=== PATIENT | female | born 1980 | race Caucasian/White ===

== ENCOUNTER 2021-11-04 11:48 | Outpatient (REF) | payer OTHER, SELFPAY ==
[2021-11-04 14:24] LABS: Cholesterol 141 mg/dL; Glucose Fasting 88 mg/dL (60-99); HDL Cholesterol 38 mg/dL; LDL Cholesterol Calculated 91 mg/dl; Triglycerides 64 mg/dL
[2021-11-04 14:46] LABS: Vitamin D 25-OH Total 14.1 ng/mL (>30)
== END 2021-11-04 11:49 | disposition home or self-care (01) ==
LOC: HO.HMGCLDS 11:48
PROVIDERS: PCP Internal Medicine; Visit Provider Internal Medicine
DX: Z00.00 Encounter for general adult medical examination without abnormal findings (principal)
CPT/HCPCS: 36415; 80061; 82306; 82947

== ENCOUNTER 2023-05-20 12:23 | Outpatient (AMB) | payer OTHER, SELFPAY ==
--- NOTE | 2023-05-20 13:01 | MHC.PC.OV ---
Vital Signs 05/20/23 13:05 Height 5 ft 1 in Weight 143 lb BMI 27.0 BP 104/64 Blood Pressure Location Rt brachial Position Sitting Pulse 66 Pulse Source Pulse Oximeter Pulse Oximetry (%) 99 Oxygen Delivery Method Room Air Intake Visit Reasons: PHY Intake Note: Pt is here today for her Physical Exam Is last menstrual period known: Yes Last menstrual period: 04/26/23 Allergies No Known Allergies Allergy (Verified 05/20/23 13:37) Medication List - Last Reconciled 05/20/23 by Winter Ji MD ibuprofen 0 mg PO Tobacco use date assessed: 05/20/23 Dental Screening Dental Screen Date: 05/20/23 Did you have a dental visit in the last 12 months?: Yes Did you have a dental problem in the last 6 months where you did not have access to dental care?: Yes Was dental information given to patient?: Patient has dentist HPI HPI Comments History of Present Illness Details 42-year-old lady here today for physical exam, currently sees an OBGYN, , at [facility] for routine Pap and pelvic exam last done 03/03/2023 with normal findings. Patient also has been referred for a screening mammogram, but has not had it scheduled yet. She currently goes to see Dr. Briggs at [facility] for left shoulder pain, with a partial tear on the labrum as noted on MRI, scheduled for arthroscopic surgery in July 2023. Complains of pain on flexion/extension of her left thumb present now for at least a week, tripped and tried to break the fall with her left hand [facility] Medical History Left shoulder pain No pertinent past medical history Vitamin D deficiency Surgical History Stickney teeth extracted Family History Father Essential hypertension Mother Essential hypertension Paternal Grandmother Breast cancer Mental health disorder Maternal Grandmother Cancer of kidney Social History Housing: House Alcohol intake: current Patient Tobacco Use Status: Former Tobacco user Years Smoked: 20 yrs e-Cigarette/Vaping Use: Never Used service: No Current occupational status: employed Cognitive needs: No Hearing needs: No Vision needs: Yes Female Reproductive History Menstrual Age of Menarche: 9 Date of last menstrual period: 04/26/23 Date of last pap smear: 03/05/23 Other: sees [facility] at [facility] , scheduled for a mammogram Questionnaire PHQ-9 Over the last 2 weeks, how often have you been bothered by any of the following problems? 1. Little interest or pleasure in doing things: not at all 2. Feeling down, depressed, or hopeless: not at all 3. Trouble falling or staying asleep, or sleeping too much: not at all 4. Feeling tired or having little energy: not at all 5. Poor appetite or overeating: not at all 6. Feeling bad about yourself - or that you are a failure or have let yourself or your family down: not at all 7. Trouble concentrating on things, such as reading the newspaper or watching television: not at all 8. Moving or speaking so slowly that other people could have noticed. Or the opposite - being so fidgety or restless that you have been moving around a lot more than usual: not at all 9. Thoughts that you would be better off or of hurting yourself in some way: not at all Total score: 0 Depression Screening Interpretation: Negative 32168 - PHQ-9 Billing: Yes Source: Developed by Drs. Young Ramon, Marichuy Maki, Wood Johnson and colleagues, with an educational stefani from [employer]. Thrive Questionnaire Date Thrive assessed: 05/20/23 I am a: Patient What is your living situation today?: I have a steady place to live Within the past 12 months, did the food you bought not last and you didn't have the money to get more?: Never true Within the past 12 months, did you worry whether your food would run out before you got money to buy more?: Never true Do you have trouble paying for medicines?: No Do you have trouble getting transportation to medical appointments?: No Do you have trouble paying your heating and electricity bill?: No Do you have trouble taking care of your child, family member or friend?: No Do you have trouble with day-to-day activities such as bathing, preparing meals, shopping, managing finances, etc.?: No Are you currently unemployed and looking for a job?: No Are you interested in more education?: No AUDIT C Alcohol Use Questionnaire (AUDIT-C) 1. How often do you have a drink containing alcohol?: Never Total Score: 0 Score Reviewed/Action Taken: Yes ALICIA-7 AMB Questionnaire ALICIA-7 Date ALICIA - 7 assessed: 05/20/23 Feeling nervous, anxious, or on edge: 0 = Not at all Not being able to stop or control worryin = Not at all Worrying too much about different things: 0 = Not at all Trouble relaxin = Not at all Being so restless that it is hard to sit still: 0 = Not at all Becoming easily annoyed or irritable: 0 = Not at all Feeling afraid as if something awful might happen: 0 = Not at all Total ALICIA-7 score (0-4 normal; 5-9 mild; 10-14 moderate; 15-21 severe): 0 Source: Developed by Drs. Young Ramon, Marichuy Maki, Wood Johnson and colleagues, with an educational stefani from [employer]. ALICIA-7 Assessment Billing ALICIA-7 Assessment Tool: ALICIA-7 Assessment 07214 Review of Systems Const Denies body aches, Denies difficulty sleeping, Denies fatigue, Denies fever(s), Denies headache(s) and Denies weakness Eyes Denies change in vision and Denies eye discharge ENT Reports Normal hearing present, Denies dysphagia, Denies dizziness, Denies headache(s), Denies nasal congestion, Denies nasal discharge and Denies sore throat Card Denies chest pain, Denies lightheadedness, Denies palpitations, Denies dyspnea and Denies dyspnea on exertion Resp Denies chest congestion, Denies cough, Denies dyspnea, Denies dyspnea on exertion and Denies wheezing GI Denies abdominal pain, Denies melena, Denies bloating, Denies hematochezia, Denies change in bowel habits, Denies dysphagia and Denies heartburn Reports abnormal menses (Sometimes gets 2 periods in a month), Denies hematuria, Denies change in libido, Denies urinary frequency, Denies difficulty voiding, Denies genital lesions, Denies menorrhagia, Denies hot flashes, Denies nipple discharge, Denies dysmenorrhea, Denies dysuria, Denies urinary incontinence and Denies vaginal discharge Musc Reports no additional complaints Skin/Breast Denies breast pain, Denies breast mass, Denies lesions, Denies nipple discharge and Denies rash Neuro Reports Normal hearing present, Denies dizziness, Denies headache(s), Denies Sensory deficit (Neuro) and Denies weakness Psych Reports as per HPI and Denies change in libido Endo Denies change in libido, Denies fatigue, Denies polydipsia, Denies polyuria and Denies palpitations Giovanni/Lymph Denies easy bleeding and Denies easy bruising Aller/Immun Denies seasonal rhinorrhea and Denies wheezing Physical exam (Primary Care) Vital Signs: Last Vital Signs Pulse 66 05/20/23 13:05 BP 104/64 05/20/23 13:05 Pulse Ox 99 05/20/23 13:05 Oxygen Delivery Method Room Air 05/20/23 13:05 BMI result Body Mass Index 27.0 Tobacco/Smoking Status: Tobacco use Status Tobacco use date assessed 05/20/23 05/20/23 13:02 Patient Tobacco Use Status Former Tobacco user 05/20/23 13:02 e-Cigarette/Vaping Use Never Used 05/20/23 13:02 Depression Screening Interpretation: Negative Thrive Assessment: Date of Thrive Assessment Date Thrive assessed 11/04/21 05/20/23 13:02 Const General: cooperative, healthy appearing, no acute distress and alert Nutritional Appearance: average body habitus Orientation/consciousness: patient oriented x3 HENMT Head: Yes normocephalic and Yes atraumatic Ears: hearing grossly normal bilaterally, external ears normal, TM's normal bilaterally and EAC's normal General nose exam: Normal external nose present and No nasal discharge present Face and sinus: Yes face symmetric Mouth: Normal oral and palatal mucosa present, lip normal, tongue normal, oropharynx normal and moist mucous membranes Eyes Conjunctivae: conjunctivae normal Sclerae: sclerae normal Pupils: Equal, round and reactive pupils present EOM: EOMs intact bilaterally Neck Neck: Yes full ROM and Yes no lymphadenopathy Thyroid: Thyroid normal Carotids: normal carotid upstroke Chest Chest palpation & inspection: normal inspection of the chest Resp Effort & Inspection: normal respiratory effort and able to speak in complete sentences Auscultation: clear to auscultation bilaterally Cardio Rate: regular rate Rhythm: regular rhythm Heart sounds: S1 normal heart sound present and S2 normal heart sound present GI Inspection: Yes normal to inspection Palpation (GI): Soft to palpation Auscultation: normal bowel sounds Back/Spine/Pelvis Back: No back tenderness Skin General skin exam: no rashes or lesions noted Neuro General: patient oriented x3, gait normal, moves all extremities, no focal motor deficits and CN's II-XI intact bilaterally Cranial nerves: Yes Equal, round and reactive pupils present and Yes Normal hearing present Cognition (Neuro): normal cognition Gait exam (Neuro): Normal gait present Motor exam (neuro): 5/5 motor strength present throughout Sensory Exam: No Sensory deficit (Neuro) Extrem Other: Unable to abduct more than 90 degrees left arm and unable to extended forward more than 90 degrees due to pain and stiffness, slight tenderness on palpation of left MCP joint, with pain elicited on hyper extension of thumb General: Yes normal to inspection, Yes no pedal edema and Yes normal gait Psych Appearance: grossly normal and well kempt Mental Status: mental status grossly normal Speech and movement: Normal speech and movement present Affect: normal affect Attitude: cooperative Thought process: Normal thought process present Thought content: Normal thought content present Assessment and Plan Assessment & Plan (1) Annual visit for general adult medical examination with abnormal findings: Code(s): Z00.01 - Encounter for general adult medical examination with abnormal findings Plan: Will check appropriate labs. Gets regular dental visit every 6 months and regular eye exams, at least every 2 years. Take adequate calcium in diet and vitamin-D 3 at 2000 IU per cap once a day, in addition to weight-bearing exercises to help maintain good muscle tone and weight control. Goes to [facility] for her routine Pap and pelvic exam, up-to-date done earlier this year. Instructed to do self-breast exam, and recommended to get yearly mammogram, starting at age 40. Reminded to get her COVID booster, it with her Tdap and gets yearly flu shots. (2) Left shoulder pain: Comment: Sees Dr. Briggs at [facility], scheduled for arthroscopic surgery July 2023 Code(s): M25.512 - Pain in left shoulder Plan: Currently being followed by [facility], sees Dr. Conti who scheduled her for arthroscopic surgery in July 2023 (3) Sprain of hand, thumb, left: Code(s): S63.602A - Unspecified sprain of left thumb, initial encounter Plan: Try massaging diclofenac gel or Aleve cream to affected area to 2 3 times a day as needed. Orders: Orders Glucose Fasting Today E55.9 - Vitamin D deficiency, unspecified, M25.512 - Pain in left shoulder, Z00.01 - Encounter for general adult medical examination with abnormal findings Lipid Panel Today E55.9 - Vitamin D deficiency, unspecified, M25.512 - Pain in left shoulder, Z00.01 - Encounter for general adult medical examination with abnormal findings Vitamin D 25-OH Total Today E55.9 - Vitamin D deficiency, unspecified, M25.512 - Pain in left shoulder, Z00.01 - Encounter for general adult medical examination with abnormal findings Coding Level of Care Code Est Pt Prev Care 40-64y(43630) Diagnoses Annual visit for general adult medical examination with abnormal findings Z00.01 Left shoulder pain M25.512 Sprain of hand, thumb, left S63.602A Additional Codes ALICIA-7 Assessment Billing - ALICIA-7 Assessment Tool: ALICIA-7 Assessment 90155 ([id number])
[2023-05-20 13:05] VITALS: BP 104/64; PULSE 66; O2SAT 99; BMI 27.0
== END 2023-05-20 13:52 | disposition home or self-care (01) ==
PROVIDERS: PCP Internal Medicine; Visit Provider Internal Medicine
DX: Z00.01 Encounter for general adult medical examination with abnormal findings (principal); M25.512 Pain in left shoulder; S63.602A Unspecified sprain of left thumb, initial encounter
CPT/HCPCS: 99396

== ENCOUNTER 2024-05-24 08:03 | Outpatient (AMB) | payer OTHER, SELFPAY ==
--- NOTE | 2024-05-24 08:04 | MHC.PC.OV ---
Vital Signs 05/24/24 08:08 Height 5 ft 1 in Weight 150 lb BMI 28.3 BP 110/62 Blood Pressure Location Rt brachial Position Sitting Pulse 67 Pulse Source Pulse Oximeter Pulse Oximetry (%) 99 Oxygen Delivery Method Room Air Intake Visit Reasons: PE Intake Note: Pt is here today for her PE: Last papsmear 03/09/24, Never had a mammogram Allergies No Known Allergies Allergy (Verified 05/24/24 08:30) Medication List - Last Reconciled 05/24/24 by Winter Ji MD ibuprofen 0 mg PO Tobacco use date assessed: 05/24/24 Dental Screening Dental Screen Date: 05/24/24 Did you have a dental visit in the last 12 months?: Yes Did you have a dental problem in the last 6 months where you did not have access to dental care?: No Was dental information given to patient?: Patient has dentist HPI PE HPI Details 43-year-old Lady here today for physical exam. She is up-to-date with her cervical cancer screening, goes [facility], with last Pap smear done 03/09/2024. Overdue for her mammogram, never had one. Currently looking for a new OBGYN as her current provider is retiring. She has been feeling well except for loss of libido, which patient states has been present now for several years and seems to be progressing. Denies any pelvic pain, no dyspareunia denies any depression symptoms or anxiety. [facility] Medical History (Updated 05/24/24 @ 08:57 by Winter Ji MD) Vitamin D deficiency Left shoulder pain Surgical History (Updated 05/24/24 @ 08:52 by Winter Ji MD) History of arthroscopy of left shoulder [place] teeth extracted Family History (Updated 05/24/24 @ 08:53 by Winter Ji MD) Father Essential hypertension Mother Essential hypertension Paternal Grandmother Breast cancer Mental health disorder Maternal Grandmother Cancer of kidney Maternal Aunt Thyroid disorder Social History Housing: House Alcohol intake: current Patient Tobacco Use Status: Former Tobacco user Years Smoked: 20 yrs e-Cigarette/Vaping Use: Never Used service: No Current occupational status: employed Cognitive needs: No Hearing needs: No Vision needs: Yes Female Reproductive History Menstrual Age of Menarche: 9 Duration of menses: 3-5 days Date of last menstrual period: 05/09/24 control method: permanent sterilization Permanent Sterilization: Vasectomy Questionnaire PHQ-9 Over the last 2 weeks, how often have you been bothered by any of the following problems? 1. Little interest or pleasure in doing things: not at all 2. Feeling down, depressed, or hopeless: not at all 3. Trouble falling or staying asleep, or sleeping too much: not at all 4. Feeling tired or having little energy: several days 5. Poor appetite or overeating: not at all 6. Feeling bad about yourself - or that you are a failure or have let yourself or your family down: not at all 7. Trouble concentrating on things, such as reading the newspaper or watching television: not at all 8. Moving or speaking so slowly that other people could have noticed. Or the opposite - being so fidgety or restless that you have been moving around a lot more than usual: not at all 9. Thoughts that you would be better off or of hurting yourself in some way: not at all Total score: 1 Depression Screening Interpretation: Negative Depression Screening Done: Yes 51712 - PHQ-9 Billing: Yes Source: Developed by Drs. Young Ramon, Marichuy Maki, Wood Johnson and colleagues, with an educational stefani from [employer]. Thrive Questionnaire Date Thrive assessed: 05/24/24 I am a: Patient What is your living situation today?: I have a steady place to live Within the past 12 months, did the food you bought not last and you didn't have the money to get more?: Never true Within the past 12 months, did you worry whether your food would run out before you got money to buy more?: Never true Do you have trouble paying for medicines?: No Do you have trouble getting transportation to medical appointments?: No Do you have trouble paying your heating and electricity bill?: No Do you have trouble taking care of your child, family member or friend?: No Do you have trouble with day-to-day activities such as bathing, preparing meals, shopping, managing finances, etc.?: No Are you currently unemployed and looking for a job?: No Are you interested in more education?: No Please select the resources that you would like help with: Housing/Nursing Home Currently or been in a relationship where the following occur: No concerns reported THRIVE Score: 0 AUDIT C Alcohol Use Questionnaire (AUDIT-C) 1. How often do you have a drink containing alcohol?: 2-3 times a week 2. How many drinks containing alcohol do you have on a typical day when you are drinking?: 3 or 4 3. How often do you have six or more drinks on one occasion?: Monthly Total Score: 6 ALICIA-7 AMB Questionnaire ALICIA-7 Date ALICIA - 7 assessed: 05/24/24 Feeling nervous, anxious, or on edge: 0 = Not at all Not being able to stop or control worryin = Not at all Worrying too much about different things: 0 = Not at all Trouble relaxin = Not at all Being so restless that it is hard to sit still: 0 = Not at all Becoming easily annoyed or irritable: 1 = Several days Feeling afraid as if something awful might happen: 0 = Not at all Total ALICIA-7 score (0-4 normal; 5-9 mild; 10-14 moderate; 15-21 severe): 1 Source: Developed by Drs. Young Ramon, Marichuy Maki, Wood Johnson and colleagues, with an educational stefani from [employer]. ALICIA-7 Assessment Billing ALICIA-7 Assessment Tool: ALICIA-7 Assessment 34248 Review of Systems Const Denies body aches, Denies difficulty sleeping, Denies fatigue, Denies fever(s), Denies headache(s) and Denies weakness Eyes Denies change in vision ENT Reports Normal hearing present, Denies dysphagia, Denies dizziness, Denies headache(s), Denies nasal congestion, Denies nasal discharge and Denies sore throat Card Denies chest pain, Denies lightheadedness, Denies palpitations, Denies dyspnea and Denies dyspnea on exertion Resp Denies chest congestion, Denies cough, Denies dyspnea, Denies dyspnea on exertion and Denies wheezing GI Denies abdominal pain, Denies melena, Denies bloating, Denies hematochezia, Denies change in bowel habits, Denies dysphagia and Denies heartburn Reports abnormal menses (Sometimes gets 2 periods in a month), Denies hematuria, Denies urinary frequency, Denies genital lesions, Denies menorrhagia, Denies hot flashes, Denies nipple discharge, Denies dysmenorrhea, Denies dysuria, Denies urinary incontinence and Denies vaginal discharge Musc Reports no additional complaints Skin/Breast Denies breast pain, Denies breast mass, Denies lesions, Denies nipple discharge and Denies rash Neuro Reports Normal hearing present, Denies dizziness, Denies headache(s), Denies Sensory deficit (Neuro) and Denies weakness Psych Reports as per HPI Endo Denies fatigue, Denies polydipsia, Denies polyuria and Denies palpitations Giovanni/Lymph Denies easy bleeding and Denies easy bruising Aller/Immun Denies seasonal rhinorrhea and Denies wheezing Physical exam (Primary Care) Vital Signs: Last Vital Signs Pulse 67 05/24/24 08:08 BP 110/62 05/24/24 08:08 Pulse Ox 99 05/24/24 08:08 Oxygen Delivery Method Room Air 05/24/24 08:08 BMI result Body Mass Index 28.3 Tobacco/Smoking Status: Tobacco use Status Tobacco use date assessed 05/24/24 05/24/24 08:05 Patient Tobacco Use Status Former Tobacco user 05/24/24 08:05 e-Cigarette/Vaping Use Never Used 05/24/24 08:05 PHQ-9: PHQ-9 Score PHQ-9: Total score 1 05/24/24 08:05 Depression Screening Interpretation: Negative Thrive Assessment: Date of Thrive Assessment Date Thrive assessed 05/24/24 05/24/24 08:10 Currently or been in a relationship where the following occur: No concerns reported Const General: cooperative, healthy appearing, no acute distress and alert Nutritional Appearance: average body habitus Orientation/consciousness: patient oriented x3 HENMT Head: Yes normocephalic and Yes atraumatic Ears: hearing grossly normal bilaterally, external ears normal, TM's normal bilaterally and EAC's normal General nose exam: Normal external nose present and No nasal discharge present Face and sinus: Yes face symmetric Mouth: Normal oral and palatal mucosa present, lip normal, tongue normal, oropharynx normal and moist mucous membranes Eyes Conjunctivae: conjunctivae normal Sclerae: sclerae normal Pupils: Equal, round and reactive pupils present EOM: EOMs intact bilaterally Neck Neck: Yes full ROM and Yes no lymphadenopathy Thyroid: Thyroid normal Carotids: normal carotid upstroke Chest Chest palpation & inspection: normal inspection of the chest Resp Effort & Inspection: normal respiratory effort and able to speak in complete sentences Auscultation: clear to auscultation bilaterally Cardio Rate: regular rate Rhythm: regular rhythm Heart sounds: S1 normal heart sound present and S2 normal heart sound present GI Inspection: Yes normal to inspection Palpation (GI): Soft to palpation Auscultation: normal bowel sounds Back/Spine/Pelvis Back: No back tenderness Skin General skin exam: no rashes or lesions noted Neuro General: patient oriented x3, gait normal, moves all extremities, no focal motor deficits and CN's II-XI intact bilaterally Cranial nerves: Yes Equal, round and reactive pupils present and Yes Normal hearing present Cognition (Neuro): normal cognition Gait exam (Neuro): Normal gait present Motor exam (neuro): 5/5 motor strength present throughout Sensory Exam: No Sensory deficit (Neuro) Extrem General: Yes normal to inspection, Yes full ROM, Yes no pedal edema and Yes normal gait Psych Appearance: grossly normal and well kempt Mental Status: mental status grossly normal Speech and movement: Normal speech and movement present Affect: normal affect Attitude: cooperative Thought process: Normal thought process present Thought content: Normal thought content present Assessment and Plan Assessment & Plan (1) Annual visit for general adult medical examination with abnormal findings: Code(s): Z00.01 - Encounter for general adult medical examination with abnormal findings Plan: Will check appropriate labs. Continue regular dental visit every 6 months and regular eye exams, at least every 2 years. Take adequate calcium in diet and vitamin-D 3 at 2000 IU per cap once a day, in addition to weight-bearing exercises to help maintain good muscle tone and weight control. Instructed to do self-breast exam, and recommended to get yearly mammogram, scheduled for the day, patient wants it done at [facility]. Up-to-date with her cervical cancer screening, done 03/09/2024. Has had COVID vaccinations in the past but does not want to get the booster, reminded to get her flu shot yearly and up-to-date with her Tdap. (2) Vitamin D deficiency: Code(s): E55.9 - Vitamin D deficiency, unspecified Plan: Ordered repeat vitamin-D level, currently not taking any vitamin-D supplement, states that she is always outdoors (3) Encounter for counseling regarding advance directives: Code(s): Z71.89 - Other specified counseling Plan: Initiated the conversation about Advanced Directives. Advanced Directives help patients prepare for current and future decisions about their medical treatment and place of care. Discussed with patient that it is a process where a patients current condition and prognosis are reviewed, their wishes for information regarding their illness are elicited, and likely medical dilemmas are presented and options discussed. Healthcare proxy done today. The form can be amended as needed, reviewed yearly and make changes as needed (4) Reduced libido: Code(s): R68.82 - Decreased libido Plan: Will check fasting glucose, lipids, TSH with free T4 level, denies any anxiety or depressive symptoms Orders: Orders Lipid Panel Today E55.9 - Vitamin D deficiency, unspecified, R68.82 - Decreased libido, Z13.1 - Encounter for screening for diabetes mellitus, Z13.220 - Encounter for screening for lipoid disorders, Z71.89 - Other specified counseling Glucose Fasting Today E55.9 - Vitamin D deficiency, unspecified, R68.82 - Decreased libido, Z13.1 - Encounter for screening for diabetes mellitus, Z13.220 - Encounter for screening for lipoid disorders, Z71.89 - Other specified counseling TSH reflex Free T4 Today Z83.49 - Family history of other endocrine, nutritional and metabolic diseases Vitamin D 25-OH Total Today E55.9 - Vitamin D deficiency, unspecified, R68.82 - Decreased libido, Z13.1 - Encounter for screening for diabetes mellitus, Z13.220 - Encounter for screening for lipoid disorders, Z71.89 - Other specified counseling MM tomosynthesis screening BI Today Z12.31 - Encounter for screening mammogram for malignant neoplasm of breast Coding Level of Care Code Est Pt Prev Care 40-64y(31281) Diagnoses Annual visit for general adult medical examination with abnormal findings Z00.01 Vitamin D deficiency E55.9 Encounter for counseling regarding advance directives Z71.89 Reduced libido R68.82 Additional Codes ALICIA-7 Assessment Billing - ALICIA-7 Assessment Tool: ALICIA-7 Assessment 43754 ([id number])
[2024-05-24 08:08] VITALS: BP 110/62; PULSE 67; O2SAT 99; BMI 28.3
== END 2024-05-24 10:23 | disposition home or self-care (01) ==
PROVIDERS: PCP Internal Medicine; Visit Provider Internal Medicine
DX: Z00.00 Encounter for general adult medical examination without abnormal findings (principal); E55.9 Vitamin D deficiency, unspecified; Z71.89 Other specified counseling; R68.82 Decreased libido
CPT/HCPCS: 99396

== ENCOUNTER 2024-05-24 08:45 | Outpatient (REF) | payer OTHER, SELFPAY ==
[2024-05-24 11:35] LABS: TSH reflex Free T4 1.97 uIU/mL (0.32-4.0); Vitamin D 25-OH Total 59.8 ng/mL (>30)
[2024-05-24 11:40] LABS: Cholesterol 141 mg/dL (<200); Glucose Fasting 87 mg/dL (60-99); HDL Cholesterol 48 mg/dL (>40); LDL Cholesterol Calculated 84 mg/dL (<100); Triglycerides 46 mg/dL (<150)
== END 2024-05-24 08:46 | disposition home or self-care (01) ==
LOC: HO.HMGCLDS 08:45
PROVIDERS: PCP Internal Medicine; Visit Provider Internal Medicine
DX: E55.9 Vitamin D deficiency, unspecified (principal); Z71.89 Other specified counseling; R68.82 Decreased libido; Z13.220 Encounter for screening for lipoid disorders; Z13.1 Encounter for screening for diabetes mellitus; Z83.49 Family history of other endocrine, nutritional and metabolic diseases; E59 Dietary selenium deficiency
CPT/HCPCS: 36415; 80061; 82306; 82947; 84443

== ENCOUNTER 2024-12-28 08:26 | Outpatient (AMB) | payer OTHER, SELFPAY ==
[2024-12-28 08:50] VITALS: BP 118/76; PULSE 67; O2SAT 97; BMI 28.4
--- NOTE | 2024-12-28 08:50 | AM.OFFWIN_ITS ---
Intake Vital Signs 12/28/24 08:50 Height 5 ft 1 in Weight 150 lb 8 oz BMI 28.4 BP 118/76 Blood Pressure Location Lt brachial Position Sitting Pulse 67 Pulse Source Pulse Oximeter Pulse Oximetry (%) 97 Oxygen Delivery Method Room Air Intake Visit Reasons: EP LT eye swelling, stye?? Intake Note: Patient here for left eye swelling and slight discharge that started this morning. Patient Tobacco Use Status: Former Tobacco user Allergies No Known Allergies Allergy (Verified 12/28/24 08:55) Medication List - Last Reconciled 12/28/24 by Patrick Forrest MD ibuprofen 0 mg PO Do you need a note to return to daycare/school/sports/work: No HPI EP LT eye swelling, stye?? HPI Details History - The patient is a 44-year-old female pr esenting with swelling and redness of the eyelid. - Onset of eyelid swelling corresponds w ith development of a sty noted on Thursday, which initially improved by Thursday. - Rubbing of the itchy eye on Thursday may have contributed to exacerbation of symptoms. - Significant progression in swelling no howard by family members by Thursday, becoming worse by morning. - No vision impairment currently, as she wears glasses and sees well. - Mild discharge was reported this syedani ng, but no photophobia is present. - Initial symptoms were itching in the a ffected eye, leading to manipulation and potential worsening of condition. Problem List - Blepharitis - Hordeolum (Sty) Patient Instructions - Apply warm compresses to the affected area. - Use the prescribed antibiotic eye drop s as directed. - Monitor the condition for improvement over the next 48 hours. - If symptoms worsen, seek evaluation by an artificial plastic eye maker. Review of Systems - General: No fever no chills - Neurological: No headaches no dizziness - Ear nose throat: No sore throat no hearing difficulty no ear pain Physical Exam General: No acute distress HEENT: Swollen eyelid upper more than lower left, sty present on the upper eyelid, no vision problems, slight discharge in the morning Neck: Supple Respiratory system: Able to talk in full sentences CHANNEL MARKETING MANAGER: Alert awake oriented x3 motor sensory intact Skin: Normal turgor PFSH Medical History Vitamin D deficiency Left shoulder pain Surgical History History of arthroscopy of left shoulder [place] teeth extracted Family History Father Essential hypertension Mother Essential hypertension Paternal Grandmother Breast cancer Mental health disorder Maternal Grandmother Cancer of kidney Maternal Aunt Thyroid disorder Social History Housing: House Alcohol intake: current Patient Tobacco Use Status: Former Tobacco user Years Smoked: 20 yrs e-Cigarette/Vaping Use: Never Used service: No Current occupational status: employed Cognitive needs: No Hearing needs: No Vision needs: Yes Female Reproductive History Menstrual Age of Menarche: 9 Physical Exam Vital Signs: Last Vital Signs Pulse 67 12/28/24 08:50 BP 118/76 12/28/24 08:50 Pulse Ox 97 12/28/24 08:50 Oxygen Delivery Method Room Air 12/28/24 08:50 BMI result Body Mass Index 28.4 Assessment & Plan Assessment & Plan (1) Hordeolum externum (stye): Code(s): H00.019 - Hordeolum externum unspecified eye, unspecified eyelid Qualifiers: Laterality: left Eyelid: upper Qualified Code(s): H00.014 - Hordeolum externum left upper eyelid (2) Blepharitis, left eye: Code(s): H01.006 - Unspecified blepharitis left eye, unspecified eyelid Qualifiers: Blepharitis type: unspecified type Eyelid: upper Qualified Code(s): H01.004 - Unspecified blepharitis left upper eyelid Plan History - The patient is a 44-year-old female presenting with swelling and redness of the eyelid. - Onset of eyelid swelling corresponds with development of a sty noted on Thursday, which initially improved by Thursday. - Rubbing of the itchy eye on Thursday may have contributed to exacerbation of symptoms. - Significant progression in swelling noted by family members by Thursday, becoming worse by morning. - No vision impairment currently, as she wears glasses and sees well. - Mild discharge was reported this morning, but no photophobia is present. - Initial symptoms were itching in the affected eye, leading to manipulation and potential worsening of condition. Problem List - Blepharitis - Hordeolum (Sty) Patient Instructions - Apply warm compresses to the affected area. - Use the prescribed antibiotic eye drops as directed. - Monitor the condition for improvement over the next 48 hours. - If symptoms worsen, seek evaluation by an artificial plastic eye maker. Medications: New polymyxin B sulf-trimethoprim 10,000 unit- 1 mg/mL 1 drp ophthalmic (eye) QID 7 days 10 mL 0RF Coding Level of Care Code Est Pt Level 3 (56362) Diagnoses Hordeolum externum of left upper eyelid H00.014 Laterality: left Eyelid: upper Blepharitis of left upper eyelid, unspecified type H01.004 Blepharitis type: unspecified type Eyelid: upper
== END 2024-12-28 09:42 | disposition home or self-care (01) ==
PROVIDERS: PCP Internal Medicine; Visit Provider Internal Medicine
DX: H00.014 Hordeolum externum left upper eyelid (principal); H01.004 Unspecified blepharitis left upper eyelid

== ENCOUNTER → 2024-12-28 08:26 | Outpatient (BNVA) | payer OTHER, SELFPAY | PROVIDERS: PCP Internal Medicine; Visit Provider Internal Medicine | DX: H00.014 Hordeolum externum left upper eyelid (principal); H01.004 Unspecified blepharitis left upper eyelid | CPT/HCPCS: 99212 ==

== ENCOUNTER 2025-07-13 13:41 | Outpatient (AMB) | payer OTHER, SELFPAY ==
[2025-07-13 13:50] VITALS: BP 98/60; PULSE 69; RESP 15; TEMP 37.1; BMI 27.2
--- NOTE | 2025-07-13 13:50 | A.OFFPC_ITS ---
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 She is up-to-date with her cervical cancer screening, last done in 2022 at [facility] with negative findings. Has not yet had her screening mammogram, and is still l ooking for a new OBGYN as her previous 1 at [facility] is no longer in practice. She has been feeling well, with no complaints at present time. [facility] Medical History Vitamin D deficiency Left shoulder pain Surgical History History of arthroscopy of left shoulder [place] teeth extracted Family History Father Essential hypertension Mother Essential hypertension Paternal Grandmother Breast cancer Mental health disorder Maternal Grandmother Cancer of kidney Maternal Aunt Thyroid disorder Social History Housing: House Alcohol intake: current Patient Tobacco Use Status: Former Tobacco user Years Smoked: 20 yrs e-Cigarette/Vaping Use: Never Used service: No Current occupational status: employed Cognitive needs: No Hearing needs: No Vision needs: Yes Female Reproductive History Menstrual Age of Menarche: 9 Date of last menstrual period: 06/24/25 control method: permanent sterilization Permanent Sterilization: Vasectomy Questionnaire PHQ-9 Over the last 2 weeks, how often have you been bothered by any of the following problems? 1. Little interest or pleasure in doing things: not at all 2. Feeling down, depressed, or hopeless: not at all 3. Trouble falling or staying asleep, or sleeping too much: not at all 4. Feeling tired or having little energy: several days 5. Poor appetite or overeating: not at all 6. Feeling bad about yourself - or that you are a failure or have let yourself or your family down: not at all 7. Trouble concentrating on things, such as reading the newspaper or watching television: not at all 8. Moving or speaking so slowly that other people could have noticed. Or the opposite - being so fidgety or restless that you have been moving around a lot more than usual: not at all 9. Thoughts that you would be better off or of hurting yourself in some way: not at all Total score: 1 Depression Screening Interpretation: Negative Depression Screening Done: Yes 47043 - PHQ-9 Billing: Yes Source: Developed by Drs. Young Ramon, Marichuy Maki, Wood Johnson and colleagues, with an educational stefani from [employer]. Thrive Questionnaire Date Thrive assessed: 07/10/25 I am a: Patient What is your living situation today?: I have a steady place to live Within the past 12 months, did the food you bought not last and you didn't have the money to get more?: Never true Within the past 12 months, did you worry whether your food would run out before you got money to buy more?: Never true Do you have trouble paying for medicines?: No Do you have trouble getting transportation to medical appointments?: No Do you have trouble paying your heating and electricity bill?: No Do you have trouble taking care of your child, family member or friend?: No Do you have trouble with day-to-day activities such as bathing, preparing meals, shopping, managing finances, etc.?: No Are you currently unemployed and looking for a job?: No Are you interested in more education?: No Please select the resources that you would like help with: None Currently or been in a relationship where the following occur: No concerns reported THRIVE Score: 0 AUDIT C Alcohol Use Questionnaire (AUDIT-C) 1. How often do you have a drink containing alcohol?: 2-3 times a week 2. How many drinks containing alcohol do you have on a typical day when you are drinking?: 3 or 4 3. How often do you have six or more drinks on one occasion?: Less than monthly Total Score: 5 Score Reviewed/Action Taken: Yes ALICIA-7 AMB Questionnaire ALICIA-7 Date ALICIA - 7 assessed: 07/13/25 Feeling nervous, anxious, or on edge: 1 = Several days Not being able to stop or control worryin = Not at all Worrying too much about different things: 0 = Not at all Trouble relaxin = Not at all Being so restless that it is hard to sit still: 0 = Not at all Becoming easily annoyed or irritable: 1 = Several days Feeling afraid as if something awful might happen: 0 = Not at all Total ALICIA-7 score (0-4 normal; 5-9 mild; 10-14 moderate; 15-21 severe): 2 Source: Developed by Drs. Young Ramon, Marichuy Maki, Wood Johnson and colleagues, with an educational stefani from [employer]. ALICIA-7 Assessment Billing ALICIA-7 Assessment Tool: ALICIA-7 Assessment 33912 Review of Systems Const Reports no additional complaints Eyes Reports no additional complaints ENT Reports no additional complaints and Reports Normal hearing present Card Reports no additional complaints Resp Reports no additional complaints GI Reports no additional complaints Details: Having irregular menstrual cycle and occasional hot flashes Musc Reports no additional complaints Skin/Breast Denies breast skin changes, Denies breast pain, Denies breast mass and Denies rash Neuro Reports no additional complaints, Reports Normal hearing present and Denies Sensory deficit (Neuro) Psych Reports no additional complaints Endo Reports no additional complaints and Reports as per HPI Giovanni/Lymph Reports no additional complaints Aller/Immun Reports no additional complaints Physical exam (Primary Care) Vital Signs: Last Vital Signs Temp 98.7 F 07/13/25 13:50 Pulse 69 07/13/25 13:50 Resp 15 07/13/25 13:50 BP 98/60 07/13/25 13:50 BMI result Body Mass Index 27.2 Tobacco/Smoking Status: Tobacco use Status Tobacco use date assessed 07/13/25 07/13/25 13:55 Patient Tobacco Use Status Former Tobacco user 07/13/25 13:55 e-Cigarette/Vaping Use Never Used 07/13/25 13:55 PHQ-9: PHQ-9 Score PHQ-9: Total score 1 07/13/25 14:05 Depression Screening Interpretation: Negative Thrive Assessment: Date of Thrive Assessment Date Thrive assessed 07/10/25 07/13/25 13:55 Currently or been in a relationship where the following occur: No concerns reported Advance Care Planning discussion: Completed/Scanned Date of discussion: 07/13/25 Who was present: Patient Forms completed: Health Care Proxy Time spent: 16-45 minutes Actual minutes spent: 2 Const General: cooperative, healthy appearing, no acute distress and alert Nutritional Appearance: average body habitus Orientation/consciousness: patient oriented x3 HENMT Head: Yes normocephalic and Yes atraumatic Ears: hearing grossly normal bilaterally, external ears normal, TM's normal bilaterally and EAC's normal General nose exam: Normal external nose present and No nasal discharge present Face and sinus: Yes face symmetric Mouth: Normal oral and palatal mucosa present, lip normal, tongue normal, oropharynx normal and moist mucous membranes Eyes Conjunctivae: conjunctivae normal Sclerae: sclerae normal Pupils: Equal, round and reactive pupils present EOM: EOMs intact bilaterally Neck Neck: Yes full ROM and Yes no lymphadenopathy Thyroid: Thyroid normal Chest Chest palpation & inspection: normal inspection of the chest Breast/axilla inspection: normal inspection of the breasts Breast/axilla palpation: normal palpation of the breasts and normal palpation of the axillae Resp Effort & Inspection: normal respiratory effort and able to speak in complete sentences Auscultation: clear to auscultation bilaterally Cardio Rate: regular rate Rhythm: regular rhythm Heart sounds: S1 normal heart sound present and S2 normal heart sound present GI Inspection: Yes normal to inspection Palpation (GI): Soft to palpation Auscultation: normal bowel sounds Other: Referred to [facility] [place] [facility] for routine Pap and pelvic exam Back/Spine/Pelvis Back: No back tenderness Skin General skin exam: no rashes or lesions noted Neuro General: patient oriented x3, gait normal, moves all extremities, no focal motor deficits and CN's II-XI intact bilaterally Cranial nerves: Yes Equal, round and reactive pupils present and Yes Normal hearing present Cognition (Neuro): normal cognition Gait exam (Neuro): Normal gait present Motor exam (neuro): 5/5 motor strength present throughout Sensory Exam: No Sensory deficit (Neuro) Extrem General: Yes normal to inspection, Yes full ROM, Yes no pedal edema and Yes normal gait Psych Appearance: grossly normal and well kempt Mental Status: mental status grossly normal Speech and movement: Normal speech and movement present Affect: normal affect Office Procedures Flu Questionnaire Does the patient have a severe egg allergy?: No Does the patient have severe life threatening allergies?: No Does the patient have a fever or illness today?: No Has the patient ever had Guillain-Ladonia Syndrome?: No Has the patient ever had any past reaction to a flu shot?: No Immunizations Fluarix [id number] (PF) 45 mcg (15 mcg x 3)/0.5 mL IM syringe Performing Provider: Winter Ji MD Performing Location: [facility] [place] Adult [facility] Administered by: Maria Esther Lopez CMA on 07/13/25 14:04 Dose Route Admin Location Dispensed Lot Number Expiration Date NDC Accounts Receivable Accountant 0.5 mL IM Left Deltoid 0.5 mL [id number] 04/17/26 [id number] [employer] VIS Given Date VIS Provided VIS Publication Date 07/13/25 Single Vaccine 24 Eligibility Eligibility Date Funding Source Not [facility] Eligible 07/13/25 Private Coding Level of Care Code Est Pt Prev Care 40-64y(04620) Diagnoses Annual visit for general adult medical examination with abnormal findings Z00.01 Screening for malignant neoplasm of cervix Z12.4 Advance directive discussed with patient Z71.89 Additional Codes ALICIA-7 Assessment Billing - ALICIA-7 Assessment Tool: ALICIA-7 Assessment 32225 ([id number]) PHQ-9 - 74258 - PHQ-9 Billing: Yes ([id number]) Vital Signs *Quality* - Advance Care Planning discussion: Completed/Scanned ([id number]) Vital Signs *Quality* - Time spent: 16-45 minutes ([id number]) Assessment & Plan Assessment & Plan (1) Annual visit for general adult medical examination with abnormal findings: Code(s): Z00.01 - Encounter for general adult medical examination with abnormal findings Category: Medical Plan: Will check appropriate labs. Continue regular dental visit and regular eye exams, at least every 2 years. Take adequate calcium in diet and vitamin-D 3 at 2000 IU per cap once a day, in addition to weight-bearing exercises to help maintain good muscle tone and weight control. Instructed to do self-breast exam, and recommended to get yearly mammogram, ordered. Referred to [facility] [place] [facility] for her routine Pap and pelvic exam flu vaccine given today. Up-to-date with her Tdap, declines COVID booster (2) Screening for malignant neoplasm of cervix: Code(s): Z12.4 - Encounter for screening for malignant neoplasm of cervix Plan: Referred to [facility] [place] [facility] for her cervical cancer screening and pelvic exam (3) Advance directive discussed with patient: Code(s): Z71.89 - Other specified counseling Plan: Initiated the conversation about Advanced Directives. Advanced Directives help patients prepare for current and future decisions about their medical treatment and place of care. Discussed with patient that it is a process where a patients current condition and prognosis are reviewed, their wishes for information regarding their illness are elicited, and likely medical dilemmas are presented and options discussed. Healthcare proxy form completed today. The form can be amended as needed, reviewed yearly and make changes as needed Orders: Orders Influenza [id number] Immunization Today Z23 - Encounter for immunization MM tomosynthesis screening BI Today Z12.31 - Encounter for screening mammogram for malignant neoplasm of breast Glucose Fasting Today E55.9 - Vitamin D deficiency, unspecified, Z00.01 - Encounter for general adult medical examination with abnormal findings, Z13.1 - Encounter for screening for diabetes mellitus, Z13.220 - Encounter for screening for lipoid disorders Lipid Panel Today E55.9 - Vitamin D deficiency, unspecified, Z00.01 - Encounter for general adult medical examination with abnormal findings, Z13.1 - Encounter for screening for diabetes mellitus, Z13.220 - Encounter for screening for lipoid disorders Vitamin D 25-OH Total Today E55.9 - Vitamin D deficiency, unspecified, Z00.01 - Encounter for general adult medical examination with abnormal findings, Z13.1 - Encounter for screening for diabetes mellitus, Z13.220 - Encounter for screening for lipoid disorders Referrals [employer] LEADER Referral Z12.4 - Encounter for screening for malignant neoplasm of cervix
== END 2025-07-13 14:19 | disposition home or self-care (01) ==
LOC: HO.HMCC 13:42
PROVIDERS: PCP Internal Medicine; Visit Provider Internal Medicine
DX: Z00.01 Encounter for general adult medical examination with abnormal findings (principal); Z12.4 Encounter for screening for malignant neoplasm of cervix; Z71.89 Other specified counseling; Z23 Encounter for immunization; Z00.00 Encounter for general adult medical examination without abnormal findings

== ENCOUNTER → 2025-07-13 13:41 | Outpatient (BNVA) | payer OTHER, SELFPAY | PROVIDERS: PCP Internal Medicine; Visit Provider Internal Medicine | DX: Z00.01 Encounter for general adult medical examination with abnormal findings (principal); E55.9 Vitamin D deficiency, unspecified; Z23 Encounter for immunization; Z71.89 Other specified counseling | CPT/HCPCS: 90471; 90656; 96127; 99497 ==

== ENCOUNTER 2025-10-03 08:33 | Outpatient (REF) | payer OTHER, SELFPAY | END 2025-10-03 08:34 | disposition home or self-care (01) | LOC: HO.MAMMO 08:33 | PROVIDERS: PCP Internal Medicine; Visit Provider Internal Medicine | DX: Z12.31 Encounter for screening mammogram for malignant neoplasm of breast (principal) | CPT/HCPCS: 77063; 77067 ==

== ENCOUNTER → 2025-10-03 08:45 | Outpatient (BNV) | payer OTHER, SELFPAY | PROVIDERS: PCP Internal Medicine; Visit Provider Internal Medicine | DX: Z12.31 Encounter for screening mammogram for malignant neoplasm of breast (principal) | CPT/HCPCS: 77063; 77067 ==